=== PATIENT | male | born 1995 | race Caucasian/White ===

== ENCOUNTER 2021-03-07 21:49 | Emergency (ER) | payer OTHER ==
[~2021-03-07 21:49] MED LIST: CARAFATE S500 MG/TSP PO; RANITIDINE HCL150 M1 PO; ZOFRAN4 MG PO
[2021-03-07 22:23] LABS: BASOPHIL 1.1 % (0-2); EOSINOPHIL 3.6 & (0-5); HCT 46.3 % (42.0-52.0); HGB 16.2 g/dl (13.2-18.0); MCH 31.3 pg (25.0-31.0); MCV 89.4 fL (78.0-100.0); MONOCYTE 8.5 % (0-12); MPV 11.3 fL (6.0-9.5); NEUTROPHIL 49.7 % (41-80); PLT 182 K/uL (150-400); RBC 5.18 M/uL (4.70-6.00); RDW 12.9 % (11.5-14.0); WBC 9.09 K/uL (4.0-10.5)
[2021-03-07 22:35] LABS: ALBUMIN 4.3 g/dL (3.4-5.0); BILIRUBIN - TOTAL 0.7 mg/dL (0.2-1.0); BUN/CREAT RATIO (CALC) 11.5 RATIO; CREATININE 1.13 mg/dL (0.67-1.17); GLOBULIN (CALCULATION) 3.1 g/dL; POTASSIUM 3.9 mmol/L (3.5-5.1); TOTAL PROTEIN 7.4 g/dL (6.4-8.2)
== END 2021-03-07 23:02 | disposition home or self-care (01) ==
LOC: FER 21:49
PROVIDERS: Emergency Medicine
DX: R07.89 Other chest pain (principal); R05 Cough; F17.200 Nicotine dependence, unspecified, uncomplicated; F12.90 Cannabis use, unspecified, uncomplicated
CPT/HCPCS: 36415; 71045; 80053; 84484; 85025